=== PATIENT | male | born 1935 | race Caucasian/White ===

== ENCOUNTER 2020-11-10 13:40 | Inpatient (IN) | payer MEDICARE, SELFPAY ==
[2020-11-10 13:56] VITALS: BP 126/66; PULSE 91; RESP 16; RESP 18; TEMP 36.5; O2SAT 92; BMI 31.4
[2020-11-10] MEDS: Midodrine HCl 5 MG Tablet 10 MG PO (17:46)
[2020-11-10] MEDS: Amox/Clavulanate 875 MG Tablet PO (17:47)
--- NOTE | 2020-11-10 20:40 | HP.PCM_ITS ---
HPI - General General Date of Admission: 11/10/20 HPI Narrative 10/31/2020 SAUL STEVEN, is a 85 Male with below past medical history admitted to [facility] with shortness of breath/wheezing, fluid overload. Shortness of breath, lower extremity edema, left arm edema, 5 pound weight gain over last 7 days. Chest X-ray showed possible infection versus superimposed pulmonary fibrosis. CT abdomen/pelvis showed cirrhosis, small ascites. Left upper extremity doppler ultrasound negative for deep vein thrombosis. Patient was treated for fluid overload, congestive heart failure. Patient was previously on lasix which was stopped due to orthostatic hypotension. Patient diuresed, down 15 pounds since admission. Midodrine was started for orthostatic hypotension, but patient continues to have orthostatic hypotension. Cardiology consulted, recommended no Florinef, but instead changing Furosemide to 20MG every 48 hours. Dry weight is 205 pounds. 11/10/2020 Admit to TCU with debility, here for rehabilitation, strengthening, prior to discharge home with . [facility] Medical History (Updated 11/10/20 @ 20:[address] Agustin Rivera MD) Hydrocele Macular hole of left eye Allergy/AdvReac Type Severity Reaction Status Date / Time No Known Allergies Allergy Verified 11/10/20 14:03 Family History (Updated 11/10/20 @ 20:[address] Agustin Rivera MD) Mother CVA (cerebral vascular accident) Father Prostate cancer Brother Diabetes Aunt Diabetes Brother CAD (coronary artery disease) CABG Surgical History (Updated 11/10/20 @ 20:[address] Agustin Rivera MD) History of carpal tunnel release History of orchiectomy History of tonsillectomy Social History (Updated 11/10/20 @ 20:[address] Agustin Rivera MD) household members: spouse Smoking Status: Never smoker alcohol intake: never substance use type: does not use ROS Constitutional Constitutional: Denies chills, fever(s) or weight gain ENT HEENT: Denies headache(s), nasal congestion or nasal discharge Cardiovascular Cardiovascular: Denies chest pain or palpitations Respiratory/Chest Respiratory/Chest: Denies cough, excessive phlegm production or shortness of breath with exertion Gastrointestinal Gastrointestinal: Denies abdominal pain, nausea or vomiting Genitourinary Genitourinary: Denies dysuria Musculoskeletal Musculoskeletal: Denies joint pain or joint swelling Integumentary Integumentary: Denies rash or wounds Neurologic Neurologic: Denies focal weakness, numbness or tingling Psychiatric Psychiatric: Reports auditory hallucinations; Denies anxiety, depression, homicidal ideation or suicidal ideation Vital Signs Vital Signs Vital Signs: 11/10/20 13:56 Temperature 97.7 F L Temperature Source Temporal Pulse Rate 91 Pulse Rhythm Regular Pulse Strength Normal (2+) Respiratory Rate 18 Respiratory Effort Normal Non-Labored Respiratory Depth Normal Respiratory Pattern Normal Blood Pressure 126/66 H Blood Pressure Mean 86 Blood Pressure Source Monitor Blood Pressure Position Sitting Blood Pressure Location Left Arm Pulse Ox 92 Oxygen Delivery Method Nasal Cannula Oxygen Flow Rate (L/min) 3 Weight Weight: 96.706 kg Body Mass Index (BMI) 31.4 Physical Exam Const alert and oriented x3 General Appearance: cooperative HEENT normocephalic Eyes PERRL and EOMs intact bilaterally Neck supple, no JVD and no carotid bruits Resp normal respiratory effort, normal air movement and clear to auscultation bilaterally Cardio regular rate and regular rhythm GI normal to inspection, nondistended, normoactive bowel sounds, non-tender and non-distended Extremity normal capillary refill General Extremity: Negative for edema Skin no rashes or lesions noted General Skin Exam: no breakdown Psych affect normal Appearance: appropriate Assessment & Plan Assessment/Plan (1) Acute on chronic diastolic congestive heart failure: (2) Debility: (3) Benign prostate hyperplasia: (4) Carpal tunnel syndrome: (5) Orthostatic hypotension: (6) Diabetes mellitus: (7) Cirrhosis of liver: PLAN: 85 year old male with below past medical history hospitalized for shortness of breath secondary to acute on chronic diastolic congestive heart failure, complicated by orthostatic hypotension, admitted to TCU with debility, here for rehabilitation, strengthening, prior to discharge home with . * Debility - PT/OT. * Pain - Tylenol 1000MG Q6H prn pain (1-10). * Bowel - Senna/colace 1 tablet twice daily, Dulcolax 10MG daily PRN. * Adult immunization - Administer prevnar 13, pneumovax 23, fluzone, COVID19 vaccine as appropriate. * DVT prophylaxis - Lovenox 30MG sc daily. * ID - Augmentin 875MG twice daily x 4 doses. * CV prophylaxis - Aspirin 81mg daily. * Chronic diastolic congestive heart failure - Aldactone 25MG daily, Lasix 20MG Q48H. * Allergic rhinitis - Atrovent nasal spray 2 sprays three times daily. * Diabetes Mellitus II - Metformin 500MG daily. * Orthostatic hypotension - Midodrine 10mg TID. * Nutrition - MVI daily. * Hyperlipidemia - Pravastatin 10mg Q48H.
[2020-11-10] MEDS: Ipratropium Bromide 0.06% NASAL SPRAY 2 SPRAY NASAL (20:50)
[2020-11-11 06:00] VITALS: BP 108/57; PULSE 82; RESP 20; TEMP 36.8; O2SAT 94
[2020-11-11] MEDS: Furosemide 20 MG Tablet PO (06:02)
[2020-11-11] MEDS: Midodrine HCl 5 MG Tablet 10 MG PO ×3 (06:02→17:27)
[2020-11-11] MEDS: Spironolactone 25 MG Tablet PO (06:02)
[2020-11-11] MEDS: Ipratropium Bromide 0.06% NASAL SPRAY 2 SPRAY NASAL ×3 (06:02→20:55)
[2020-11-11] MEDS: Senna/Docusate Sodium 1 Tablet PO ×2 (06:14→17:27)
[2020-11-11 06:26] LABS: Bedside Glucose 104 mg/dL (70-110)
[2020-11-11 07:05] LABS: Absolute Lymphocyte Count 2.36 X10^3/uL (0.83-4.51); Absolute Neutrophil Count 3.6 X10^3/uL (2.0-7.7); Basophil# 0.06 X10^3/uL; Basophil% 0.8 % (0-1); Eosinophil# 0.53 X10^3/uL; Hematocrit 32.1 % (40-54); Hemoglobin 10.7 g/dL (13.0-16.5); Lymphocyte # 2.36 X10^3/ul (0.83-4.51); Lymphocyte % 31.3 % (19-41); Mean Corp Hgb Conc 33.3 g/dL (32-36); Mean Corpuscular Hgb 31.8 pg (27.0-32.0); Mean Corpuscular Volume 95.3 fL (80-94); Mean Platelet Vol. 9.6 fl (6.2-12.0); Monocyte# 0.98 X10^3/uL; NRBC Flagged by Analyzer 0 % (0-5); Neutrophil # 3.57 X10^3/uL (2.7-7.7); Neutrophil % 47.2 % (47-70); Platelet Count 194 K/mm3 (150-450); RBC Distribution Width CV 14.3 % (11.6-14.6); RBC Distribution Width SD 49.8 fl (35.1-43.9); Red Blood Count 3.37 M/mm3 (4.6-6.2); White Blood Count 7.6 K/mm3 (4.4-11.0)
[2020-11-11 07:29] LABS: Anion Gap 3 (5-15); BUN 13 mg/dL (7-18); BUN/Creat Ratio 16.6 RATIO (10-20); Chloride 99 mmol/L (98-107); Creatinine, Serum 0.78 mg/dL (0.70-1.30); EST Glomerular Filtration Rate 100 mL/min (>60); Est Glom Filt Rate - Afr Amer 120 mL/min (>60); Estimated Creatinine Clearance 53.03 ml/min; Glucose 98 mg/dL (74-106); Sodium Level 134 mmol/L (136-145)
[2020-11-11] MEDS: Enoxaparin 30 MG/0.3 ML Syringe SC (07:36)
[2020-11-11 08:50] VITALS: O2SAT 94
[2020-11-11] MEDS: Multivitamins,Therapeutic Tablet 1 TABLET PO (09:04)
[2020-11-11] MEDS: Amox/Clavulanate 875 MG Tablet PO ×2 (09:04→17:27)
[2020-11-11] MEDS: Aspirin E.C. 81 MG Tablet PO (09:04)
[2020-11-11] MEDS: metFORMIN HCl 500 MG Tablet PO (09:04)
--- NOTE | 2020-11-11 12:02 | CASEMGMT ---
Social Work SW met with pt for initial assessment. SW spoke with pt regarding code status and assisted pt in completing MOLST form. Pt wishes to be DNRCCA with no intubation and trial artificial nutrition if needed. MOLST communication to doctor and placed in chart. SW explained [employer] Medicare insurance benefit with NRD of 11/14 and continued stay is not guaranteed. Pt plans to return home with his and support from his children at time of discharge. SW will continue to follow. JORDI Michelle
[2020-11-11] MEDS: Tuberculin,Purif.prot.deriv. 50 TU/ML Vial 0.1 ML ID (12:31)
[2020-11-11 12:33] VITALS: BP 111/60; PULSE 76
--- NOTE | 2020-11-11 15:24 | CHAPLAIN ---
Type of Pastoral Visit _x__ Initial Visit ___ Follow-up Visit ___ On-call Visit ___ General Patient Visit ___ Spiritual Assessment ___ Family Conference ___ Bereavement ___ Rapid Response ___ Code Blue ___ Other (describe below) Pastoral Care Referral From _x__ Patient ___ Family ___ Nurse ___ Physician ___ Snack Stewardess ___ Plaster Caster ___ Other (describe below) Sacrament/Intervention _x__ Active listening ___ Anointing ___ Synagogue ___ Bereavement ___ Communion ___ Cristina exploration ___ _x__ Life review _x__ Prayer ___ Reconciliation ___ Sacrament of Sick _x__ Supportive presence ___ Wedding ___ Other (describe below) Pastoral Comments patient and spouse in the room; spouse is retired RN from this hospital from many years ago and talks of her service years; pt is doing better and hopes that his return of strength will come; pt is connected with buddhism and has support;
[2020-11-11 16:00] VITALS: BP 121/58; PULSE 74; RESP 17; TEMP 37.1; O2SAT 96
[2020-11-11 17:29] VITALS: BP 112/6
[2020-11-11] MEDS: Pravastatin 20 MG Tablet 10 MG PO (20:57)
[2020-11-11 23:36] VITALS: PULSE 74; RESP 12
[2020-11-12 05:56] VITALS: BP 115/50; PULSE 72; RESP 20; TEMP 36.2; O2SAT 94
[2020-11-12] MEDS: Ipratropium Bromide 0.06% NASAL SPRAY 2 SPRAY NASAL ×3 (05:57→22:29)
[2020-11-12] MEDS: Senna/Docusate Sodium 1 Tablet PO (05:59)
[2020-11-12] MEDS: Spironolactone 25 MG Tablet PO (05:59)
[2020-11-12] MEDS: Midodrine HCl 5 MG Tablet 10 MG PO ×3 (05:59→16:53)
[2020-11-12] MEDS: Enoxaparin 30 MG/0.3 ML Syringe SC (05:59)
[2020-11-12] MEDS: Amox/Clavulanate 875 MG Tablet PO (08:11)
[2020-11-12] MEDS: Multivitamins,Therapeutic Tablet 1 TABLET PO (08:11)
[2020-11-12] MEDS: metFORMIN HCl 500 MG Tablet PO (08:11)
[2020-11-12] MEDS: Aspirin E.C. 81 MG Tablet PO (08:11)
[2020-11-12 09:35] LABS: Anion Gap 5 (5-15); BUN 18 mg/dL (7-18); Calcium,Total 8.3 mg/dL (8.5-10.1); Chloride 100 mmol/L (98-107); EST Glomerular Filtration Rate 75 mL/min (>60); Est Glom Filt Rate - Afr Amer 91 mL/min (>60); Estimated Creatinine Clearance 53.03 ml/min; Glucose 193 mg/dL (74-106); Potassium 4.1 mmol/L (3.5-5.1); Sodium Level 134 mmol/L (136-145)
[2020-11-12 09:50] VITALS: O2SAT 96
[2020-11-12 11:36] LABS: Bedside Glucose 245 mg/dL (70-110)
[2020-11-12 14:33] VITALS: BP 126/55; PULSE 77; RESP 17; TEMP 36.5; O2SAT 94
[2020-11-12 16:21] LABS: Bedside Glucose 83 mg/dL (70-110)
[2020-11-13 04:47] VITALS: BP 98/41; PULSE 77; RESP 16; TEMP 36.8; O2SAT 95
[2020-11-13] MEDS: Ipratropium Bromide 0.06% NASAL SPRAY 2 SPRAY NASAL ×3 (04:51→22:55)
[2020-11-13] MEDS: Enoxaparin 30 MG/0.3 ML Syringe SC (04:51)
[2020-11-13] MEDS: Midodrine HCl 5 MG Tablet 10 MG PO ×3 (04:52→17:22)
--- NOTE | 2020-11-13 04:58 | NURSING ---
Addendum entered by Simi Baez 11/13/20 08:03: recheck 113/57 hr 75, medication administered. Original Note: Lasix and Aldactone held this am due to low BP.
[2020-11-13 06:31] LABS: Bedside Glucose 95 mg/dL (70-110)
[2020-11-13 06:51] LABS: Anion Gap 3 (5-15); BUN 21 mg/dL (7-18); BUN/Creat Ratio 30.4 RATIO (10-20); Calcium,Total 8.3 mg/dL (8.5-10.1); Chloride 104 mmol/L (98-107); Creatinine, Serum 0.69 mg/dL (0.70-1.30); EST Glomerular Filtration Rate 115 mL/min (>60); Est Glom Filt Rate - Afr Amer 140 mL/min (>60); Estimated Creatinine Clearance 53.03 ml/min; Glucose 96 mg/dL (74-106); Potassium 4.1 mmol/L (3.5-5.1); Sodium Level 136 mmol/L (136-145)
[2020-11-13] MEDS: Aspirin E.C. 81 MG Tablet PO (08:01)
[2020-11-13] MEDS: Multivitamins,Therapeutic Tablet 1 TABLET PO (08:01)
[2020-11-13 08:02] VITALS: BP 113/57; PULSE 75
[2020-11-13] MEDS: metFORMIN HCl 500 MG Tablet PO (08:02)
[2020-11-13] MEDS: Spironolactone 25 MG Tablet PO (08:02)
[2020-11-13] MEDS: Furosemide 20 MG Tablet PO (08:02)
[2020-11-13 15:35] VITALS: BP 119/49; PULSE 74; RESP 20; TEMP 36.3; O2SAT 93
[2020-11-13] MEDS: Senna/Docusate Sodium 1 Tablet PO (17:22)
[2020-11-13] MEDS: Pravastatin 20 MG Tablet 10 MG PO (22:55)
[2020-11-13 23:01] VITALS: PULSE 86; RESP 16; O2SAT 95
[2020-11-14 05:04] VITALS: BP 100/49; PULSE 82; RESP 20; TEMP 36.9; O2SAT 96
[2020-11-14] MEDS: Midodrine HCl 5 MG Tablet 10 MG PO ×3 (05:06→18:12)
[2020-11-14] MEDS: Senna/Docusate Sodium 1 Tablet PO ×2 (05:07→18:12)
[2020-11-14] MEDS: Enoxaparin 30 MG/0.3 ML Syringe SC (05:07)
[2020-11-14] MEDS: Spironolactone 25 MG Tablet PO (05:07)
[2020-11-14] MEDS: Ipratropium Bromide 0.06% NASAL SPRAY 2 SPRAY NASAL ×3 (05:08→21:26)
[2020-11-14 06:20] LABS: Bedside Glucose 111 mg/dL (70-110)
[2020-11-14 07:53] VITALS: O2SAT 97
[2020-11-14] MEDS: metFORMIN HCl 500 MG Tablet PO (09:17)
[2020-11-14] MEDS: Multivitamins,Therapeutic Tablet 1 TABLET PO (09:18)
[2020-11-14] MEDS: Aspirin E.C. 81 MG Tablet PO (09:18)
[2020-11-14 11:34] VITALS: BP 113/59; PULSE 76
--- NOTE | 2020-11-14 13:44 | PHA.CONS_ITS ---
Progress Note - Pharmacy Subjective: TCU ADMISSION Objective: Allergies No Known Allergies Allergy (Verified 11/10/20 14:03) Current Medications Generic Name Dose Route Start Last Admin Trade Name Patricia PRN Reason Stop Dose Admin Acetaminophen 1,000 mg 11/10/20 21:01 Acetaminophen 500 Mg Tablet PO Q6H PRN PRN Pain Score 1-10 Aspirin 81 mg 11/11/20 08:00 11/14/20 09:18 Aspirin E.C. 81 Mg Tablet PO 81 mg BREAKFAST ARNAUD Administration Bisacodyl 10 mg 11/10/20 21:01 Bisacodyl 5 Mg Tablet PO DAILY PRN Constipation Enoxaparin Sodium 30 mg 11/11/20 06:00 11/14/20 05:07 Enoxaparin 30 Mg/0.3 Ml Syringe SC 30 mg DAILY@0600 ARNAUD Administration Furosemide 20 mg 11/11/20 06:00 11/13/20 08:02 Furosemide 20 Mg Tablet PO 20 mg Q48H ARNAUD Administration Ipratropium [place] 2 spray 11/10/20 22:00 11/14/20 05:08 Ipratropium [place] 0.06% Nasal [place] NASAL 2 spray TID ARNAUD Administration Metformin HCl 500 mg 11/11/20 08:00 11/14/20 09:17 Metformin Hcl 500 Mg Tablet PO 500 mg DAILYCM ARNAUD Administration Midodrine 10 mg 11/10/20 17:00 11/14/20 11:29 Midodrine Hcl 5 Mg Tablet PO 10 mg 0600,1200,1700 ARNAUD Administration Multivitamins 1 tablet 11/11/20 08:00 11/14/20 09:18 Multivitamins,Therapeutic Tablet PO 1 tablet BREAKFAST ARNAUD Administration Pravastatin Sodium 10 mg 11/11/20 22:00 11/13/20 22:55 Pravastatin 20 Mg Tablet PO 10 mg Q48H ARNAUD Administration Senna/Docusate Sodium 1 tablet 11/11/20 06:00 11/14/20 05:07 Senna/Docusate Sodium 1 Tablet PO 1 tablet BID ARNAUD Administration Spironolactone 25 mg 11/11/20 06:00 11/14/20 05:07 Spironolactone 25 Mg Tablet PO 25 mg DAILY ARNAUD Administration Tuberculin PPD 0.1 ml 11/18/20 10:00 Tuberculin,Purif.Prot.Deriv. 50 Tu/Ml Vial ID 11/18/20 10:01 X1 ONE Problem List (Last Updated 11/10/20 @ 20:[address] Agustin Rivera MD) Diabetes mellitus (Acute) Cirrhosis of liver (Acute) Benign prostate hyperplasia (Acute) Carpal tunnel syndrome (Acute) Orthostatic hypotension (Acute) Acute on chronic diastolic congestive heart failure (Chronic) Debility (Acute) Vital Signs Temp Pulse Resp BP Pulse Ox 98.5 F 76 20 H 113/59 L 97 11/14/20 05:04 11/14/20 11:34 11/14/20 05:04 11/14/20 11:34 11/14/20 07:53 Oxygen Flow Rate (L/min) 4 Oxygen Delivery Method Nasal Cannula Weight: 97.267 kg Body Mass Index (BMI) 31.4 Sodium 136 mmol/L (136-145) 11/13/20 05:20 Potassium 4.1 mmol/L (3.5-5.1) 11/13/20 05:20 Chloride 104 mmol/L (98-107) 11/13/20 05:20 Carbon Dioxide 29.0 mmol/L (21.0-32.0) 11/13/20 05:20 Anion Gap 3 (5-15) L 11/13/20 05:20 BUN 21 mg/dL (7-18) H 11/13/20 05:20 Creatinine 0.69 mg/dL (0.70-1.30) L 11/13/20 05:20 Est GFR (MDRD) Af Amer 140 mL/min (>60) 11/13/20 05:20 Est GFR (MDRD) Non-Af 115 mL/min (>60) 11/13/20 05:20 BUN/Creatinine Ratio 30.4 RATIO (10-20) H 11/13/20 05:20 Glucose 96 mg/dL (74-106) 11/13/20 05:20 Assessment/Plan: 1. Pain: Tylenol 1000mg PO Q6h PRN Pain 1-10. Please continue to monitor for increased/decreased S/S pain, PRN medication usage. 2. CHF/ HLD/ Orthostatic hypotension: Aspirin 81mg PO Daily, Lasix 20mg PO Q48h, Midodrine 5mg TID, Pravastatin 10mg PO Q48h, Aldactone 25mg PO Daily. Please continue to monitor BP, pulse, I/O, electrolytes, S/S bleeding/bruising, Lipid panel annually or sooner if clinically indicated. 3. Diabetes Type II: Metformin 500mg PO Daily. Please continue to monitor for S/S hypoglycemia, BG levels, A1C every three months as clinically indicated. 4. Allergic Rhinitis: Atrovent Nasal [place] 2 spray TID. Please continue to monitor for improvement in symptoms, medication effectiveness. *5. DVT Prophylaxis: Lovenox 30mg SC Daily. Please consider increasing dose to 40mg SC Daily since CrCl >30mL/min, thank you. 6. General Wellness: MVI 1 tab PO Daily. Please continue to monitor. Psychotropic Medications: None Unnecessary Medications: None Bowel Regimen: Senna/Docusate 1 tab PO BID, Dulcolax 10mg PO Daily PRN. Please continue to monitor for increased/decreased constipation and/or diarrhea. Date of Note:: 11/14/20
[2020-11-14 15:49] VITALS: PULSE 85; O2SAT 95
[2020-11-14 16:58] VITALS: BP 120/48; PULSE 73; RESP 18; TEMP 36.4; O2SAT 96
[2020-11-15 05:51] VITALS: BP 93/47; PULSE 81; RESP 18; TEMP 36.3; O2SAT 96
[2020-11-15] MEDS: Furosemide 20 MG Tablet PO (05:51)
[2020-11-15] MEDS: Ipratropium Bromide 0.06% NASAL SPRAY 2 SPRAY NASAL ×3 (05:51→22:13)
[2020-11-15] MEDS: Spironolactone 25 MG Tablet PO (05:51)
[2020-11-15] MEDS: Enoxaparin 30 MG/0.3 ML Syringe SC (05:51)
[2020-11-15] MEDS: Senna/Docusate Sodium 1 Tablet PO ×2 (05:51→16:45)
[2020-11-15] MEDS: Midodrine HCl 5 MG Tablet 10 MG PO ×3 (05:51→16:44)
[2020-11-15 05:53] LABS: Anion Gap 2 (5-15); BUN 18 mg/dL (7-18); BUN/Creat Ratio 26.7 RATIO (10-20); Calcium,Total 7.7 mg/dL (8.5-10.1); Chloride 103 mmol/L (98-107); Creatinine, Serum 0.67 mg/dL (0.70-1.30); EST Glomerular Filtration Rate 119 mL/min (>60); Est Glom Filt Rate - Afr Amer 144 mL/min (>60); Estimated Creatinine Clearance 53.03 ml/min; Glucose 89 mg/dL (74-106); Potassium 4.1 mmol/L (3.5-5.1); Sodium Level 136 mmol/L (136-145)
[2020-11-15 06:31] LABS: Bedside Glucose 95 mg/dL (70-110)
[2020-11-15 07:26] VITALS: O2SAT 96
[2020-11-15] MEDS: Aspirin E.C. 81 MG Tablet PO (09:34)
[2020-11-15] MEDS: metFORMIN HCl 500 MG Tablet PO (09:34)
[2020-11-15] MEDS: Multivitamins,Therapeutic Tablet 1 TABLET PO (09:35)
--- NOTE | 2020-11-15 09:36 | NURSING ---
Pt c/o of increased swelling to left arm assessed and pt has +2 Pitting edema to arm/hand. Dr. Rivera updated ordered a Doppler of left arm and Palliative consult.
[2020-11-15 11:53] VITALS: BP 110/58; PULSE 84
[2020-11-15 13:46] VITALS: BP 121/53; PULSE 75; RESP 16; TEMP 36.6; O2SAT 98
[2020-11-15 22:10] VITALS: O2SAT 98
[2020-11-15] MEDS: Pravastatin 20 MG Tablet 10 MG PO (22:14)
[2020-11-16 04:33] VITALS: BP 98/45; PULSE 86; RESP 18; TEMP 36.8; O2SAT 96
[2020-11-16] MEDS: Ipratropium Bromide 0.06% NASAL SPRAY 2 SPRAY NASAL ×3 (04:41→21:12)
[2020-11-16] MEDS: Midodrine HCl 5 MG Tablet 10 MG PO ×3 (04:41→18:00)
[2020-11-16] MEDS: Enoxaparin 30 MG/0.3 ML Syringe SC (04:41)
[2020-11-16] MEDS: Spironolactone 25 MG Tablet PO (04:41)
[2020-11-16] MEDS: Senna/Docusate Sodium 1 Tablet PO ×2 (04:42→18:00)
[2020-11-16 06:40] LABS: Bedside Glucose 97 mg/dL (70-110)
[2020-11-16 07:51] VITALS: O2SAT 95
[2020-11-16] MEDS: metFORMIN HCl 500 MG Tablet PO (08:08)
[2020-11-16] MEDS: Multivitamins,Therapeutic Tablet 1 TABLET PO (08:08)
[2020-11-16] MEDS: Aspirin E.C. 81 MG Tablet PO (08:08)
[2020-11-16 10:51] VITALS: O2SAT 91
--- NOTE | 2020-11-16 10:51 | NURSING ---
Pt ambulated to doorway to scale to be weighed, pt slight dizzy, oxygen remained at 4 liters, sat dropped to 74%, pt sitting and it recovering to 94% on 4 liters. sitting in recliner chair, at side.
[2020-11-16 12:04] VITALS: BP 104/52; PULSE 84; RESP 18; TEMP 36.6; O2SAT 94
[2020-11-16 13:40] VITALS: BP 122/59; PULSE 71; RESP 18; TEMP 36.9; O2SAT 96
--- NOTE | 2020-11-16 15:34 | PCM.CONS.P ---
Assessment & Plan Assessment/Plan (1) Debility: (2) Orthostatic hypotension: (3) Cirrhosis of liver: QUALIFIERS: Ascites presence: unspecified Hepatic cirrhosis type: unspecified hepatic cirrhosis Qualified Code(s): K74.60 - Unspecified cirrhosis of liver (4) Benign prostate hyperplasia: QUALIFIERS: Lower urinary tract symptom presence: unspecified whether lower urinary tract symptoms present Qualified Code(s): N40.0 - Benign prostatic hyperplasia without lower urinary tract symptoms (5) Type II diabetes mellitus: QUALIFIERS: Diabetes mellitus complication status: without complication Diabetes mellitus fci insulin use: without fci use Qualified Code(s): E11.9 - Type 2 diabetes mellitus without complications (6) Carpal tunnel syndrome: QUALIFIERS: Laterality: unspecified laterality Qualified Code(s): G56.00 - Carpal tunnel syndrome, unspecified upper limb (7) Acute on chronic diastolic congestive heart failure: (8) Anemia: PLAN: 85-year-old male with weakness and debility, recent hospital stay at [facility] for CHF exacerbation, now admitted to TCU for further rehab prior to returning home with his . Palliative care consultation for symptom management of shortness of breath and supportive care when discharged home. 1. Debility and weakness: Working with therapy, plan is to return home. Anemia could be contributory, as well as chf and hypotension. We will continue to monitor his progress. 2. SOB/acute on chronic diastolic CHF: Appears to be compensated. Has been having some lower blood pressures, furosemide is now at 20 mg every 48 hours. Cardiology on board. He still appears short of breath, mainly with exertion. He just ambulated back from the bathroom. He actually says he wears 3 L at home at baseline. 3. History of T2DM/cirrhosis of liver/BPH/carpal tunnel syndrome/orthostatic hypotension/anemia: Complicates overall care, management, recovery, and prognosis. Defer management to specialists and PCP. We will assist with coordination of care if patient agreeable to services. Thank you for the opportunity to participate in this patient's care, please do not hesitate to contact [facility] with any further questions or concerns. Palliative direct line is [phone]. Patient has declined services at this time, states his is an RN and he has a daughter who is an PRUNER, along with 2 other daughters who assist routinely. We did some diet education with congestive heart failure. No other questions or concerns. Advised patient to contact us if he has any further questions or concerns, or if he would like more information on palliative services. We would be happy to send a liaison out to talk with him and his family. Greater than 50% of F2F visit dedicated to education and counseling of palliative care services, medications, comorbid conditions and potential assistance with management, and plan of care moving forward. Start time: 161 End time: 1733 HPI Consult Data Date of Consult: 11/16/20 HPI Narrative HPI Narrative: SAUL STEVNE, is a 85 M who presents to TCU at [facility] after being admitted to the [facility] with shortness of breath and fluid volume overload. At the hospital, he was noted to have a 5 pound weight gain over 1 week, bilateral lower extremity edema, and left arm edema. Chest x-ray showed possible infection versus superimposed pulmonary fibrosis. CT abdomen/pelvis showed cirrhosis and small amount of ascites. He was diuresed for CHF and had a negative lower extremity Doppler ultrasound. Patient did have some hypotension with the diuresis. PMH includes cirrhosis, BPH, T2 DM, hydrocele, interstitial lung disease, chronic diastolic CHF, carpal tunnel. Palliative care consulted for symptom management of shortness of breath. Patient required midodrine due to ongoing orthostatic hypotension. Cardiology was consulted and recommended no Florinef but instead changing to furosemide 20 mg every 48 hours. Given his ipsilateral left upper extremity edema, Doppler ultrasound was done to rule out DVT which was negative. There is no evidence of superficial thrombophlebitis as well. Patient lives at home with his and has supportive children. He is a lifelong non-smoker. He is on a fluid restriction and daily weights. He wears 4 L of supplemental oxygen chronically at home. Patient has been desaturating with ambulation into the upper 70s on his typical 4 L. He recovers quickly. Patient is having some pain to his bilateral shoulders, rating 5 out of 10. [facility] Medical History Hydrocele Macular hole of left eye Allergy/AdvReac Type Severity Reaction Status Date / Time No Known Allergies Allergy Verified 11/10/20 14:03 Family History Mother CVA (cerebral vascular accident) Father Prostate cancer Brother Diabetes Aunt Diabetes Brother CAD (coronary artery disease) CABG Surgical History History of carpal tunnel release History of orchiectomy History of tonsillectomy Social History household members: spouse Smoking Status: Never smoker alcohol intake: never substance use type: does not use ROS ROS Narrative Review of systems otherwise negative from a constitutional, HEENT, respiratory, cardiovascular, GI, genitourinary, musculoskeletal, skin, neurologic, psychiatric and hematologic system unless stated above.
--- NOTE | 2020-11-16 16:15 | CASEMGMT ---
Social Work Plan of care meeting held with pt and in attendance. Pt is receiving PT/OT and participating well. Pt is here under [employer] Medicare benefit and is aware next update is 11/21 with expected disharge to be issued for 11/24. Pt with medical concerns and team passed concerns on to physician. Pt plans to return home with his and family support at time of discharge. Pt informed pt would benefit from getting a hip kit for assistive devices. Will continue with treatment plan in TCU at this time. JORDI Michelle
[2020-11-17 04:41] VITALS: BP 102/49; PULSE 88; RESP 18; TEMP 37; O2SAT 97
[2020-11-17] MEDS: Ipratropium Bromide 0.06% NASAL SPRAY 2 SPRAY NASAL ×3 (04:51→21:04)
[2020-11-17] MEDS: Furosemide 20 MG Tablet PO (04:51)
[2020-11-17] MEDS: Spironolactone 25 MG Tablet PO (04:51)
[2020-11-17] MEDS: Midodrine HCl 5 MG Tablet 10 MG PO ×3 (04:52→16:12)
[2020-11-17] MEDS: Enoxaparin 30 MG/0.3 ML Syringe SC (04:52)
[2020-11-17] MEDS: Senna/Docusate Sodium 1 Tablet PO ×2 (04:52→16:11)
[2020-11-17 06:25] LABS: Bedside Glucose 132 mg/dL (70-110)
[2020-11-17 07:20] VITALS: O2SAT 96
[2020-11-17] MEDS: Multivitamins,Therapeutic Tablet 1 TABLET PO (07:46)
[2020-11-17] MEDS: metFORMIN HCl 500 MG Tablet PO (07:46)
[2020-11-17] MEDS: Aspirin E.C. 81 MG Tablet PO (07:47)
--- NOTE | 2020-11-17 07:56 | RAD_ITS ---
STUDY: X-RAY CHEST REASON FOR EXAM: Male, 85 years old. Cough, pneumonia TECHNIQUE: Single AP portable view of the chest. COMPARISON: None. FINDINGS: Increased interstitial markings in both lungs with areas of confluence more prominent in the left hemithorax. Patchy bilateral pneumonias should be ruled out. There is no demonstrated pleural abnormality. Normal size heart. Normal mediastinum and lei. Normal visualized pulmonary arteries. There is atherosclerotic calcification of the aortic arch with tortuosity. There are diffuse degenerative changes of the visualized thoracic spine. There is degenerative osteoarthritis of the bilateral shoulders. There is no demonstrated abnormality of the visualized soft tissue structures of the upper abdomen. RAD/Chest PA and Lateral IMPRESSION: Increased interstitial markings with areas of confluence more prominent in the left hemithorax. Findings are suggestive of bibasilar infiltrates. Follow-up is recommended. Electronically Signed: Robin Prince MD at 13:03 EDT , Service support ,
[2020-11-17 13:07] VITALS: BP 119/52; PULSE 87; RESP 18; TEMP 36.2; O2SAT 93
[2020-11-17] MEDS: Azithromycin 250 MG Tablet 500 MG PO (16:11)
[2020-11-17] MEDS: Cefdinir 300 MG Capsule PO (17:23)
[2020-11-17] MEDS: Pravastatin 20 MG Tablet 10 MG PO (21:04)
[2020-11-18 05:27] LABS: Absolute Lymphocyte Count 2.91 X10^3/uL (0.83-4.51); Absolute Neutrophil Count 4.1 X10^3/uL (2.0-7.7); Basophil# 0.09 X10^3/uL; Eosinophils% 5.7 % (0-5); Hematocrit 29.1 % (40-54); Hemoglobin 9.6 g/dL (13.0-16.5); Lymphocyte # 2.91 X10^3/ul (0.83-4.51); Lymphocyte % 33.3 % (19-41); Mean Corpuscular Hgb 31.4 pg (27.0-32.0); Mean Corpuscular Volume 95.1 fL (80-94); Mean Platelet Vol. 9.5 fl (6.2-12.0); Monocyte# 1.08 X10^3/uL; Monocyte% 12.4 % (0-10); NRBC Flagged by Analyzer 0 % (0-5); Neutrophil # 4.12 X10^3/uL (2.7-7.7); Neutrophil % 47.1 % (47-70); Platelet Count 187 K/mm3 (150-450); RBC Distribution Width CV 14.6 % (11.6-14.6); RBC Distribution Width SD 50.7 fl (35.1-43.9); Red Blood Count 3.06 M/mm3 (4.6-6.2); White Blood Count 8.7 K/mm3 (4.4-11.0)
[2020-11-18 05:44] LABS: Anion Gap 4 (5-15); BUN 19 mg/dL (7-18); BUN/Creat Ratio 27.4 RATIO (10-20); Calcium,Total 7.9 mg/dL (8.5-10.1); Chloride 104 mmol/L (98-107); Creatinine, Serum 0.69 mg/dL (0.70-1.30); EST Glomerular Filtration Rate 115 mL/min (>60); Est Glom Filt Rate - Afr Amer 139 mL/min (>60); Estimated Creatinine Clearance 53.03 ml/min; Glucose 114 mg/dL (74-106); Potassium 4.1 mmol/L (3.5-5.1); Sodium Level 137 mmol/L (136-145)
[2020-11-18 06:03] VITALS: BP 97/45; PULSE 90; RESP 16; TEMP 37.1; O2SAT 97
[2020-11-18] MEDS: Midodrine HCl 5 MG Tablet 10 MG PO ×3 (06:08→17:03)
[2020-11-18] MEDS: Furosemide 20 MG Tablet PO (06:08)
[2020-11-18] MEDS: Ipratropium Bromide 0.06% NASAL SPRAY 2 SPRAY NASAL ×3 (06:09→23:13)
[2020-11-18] MEDS: Enoxaparin 30 MG/0.3 ML Syringe SC (06:09)
[2020-11-18] MEDS: Spironolactone 25 MG Tablet PO (06:09)
[2020-11-18] MEDS: Cefdinir 300 MG Capsule PO ×2 (06:09→17:03)
[2020-11-18] MEDS: Senna/Docusate Sodium 1 Tablet PO (06:11)
[2020-11-18 06:25] LABS: Bedside Glucose 123 mg/dL (70-110)
[2020-11-18 07:11] VITALS: O2SAT 90
[2020-11-18] MEDS: Multivitamins,Therapeutic Tablet 1 TABLET PO (08:33)
[2020-11-18] MEDS: Aspirin E.C. 81 MG Tablet PO (08:33)
[2020-11-18] MEDS: metFORMIN HCl 500 MG Tablet PO (08:33)
[2020-11-18] MEDS: Azithromycin 250 MG Tablet PO (08:33)
[2020-11-18] MEDS: Tuberculin,Purif.prot.deriv. 50 TU/ML Vial 0.1 ML ID (11:09)
[2020-11-18 14:27] VITALS: BP 117/56; PULSE 71; RESP 20; TEMP 36.4; O2SAT 98
[2020-11-19 05:22] VITALS: BP 139/52; PULSE 84; RESP 18; TEMP 36.6; O2SAT 94
[2020-11-19] MEDS: Cefdinir 300 MG Capsule PO ×2 (05:24→18:05)
[2020-11-19] MEDS: Furosemide 20 MG Tablet PO (05:24)
[2020-11-19] MEDS: Midodrine HCl 5 MG Tablet 10 MG PO ×3 (05:24→18:05)
[2020-11-19] MEDS: Spironolactone 25 MG Tablet PO (05:24)
[2020-11-19] MEDS: Senna/Docusate Sodium 1 Tablet PO (05:25)
[2020-11-19] MEDS: Ipratropium Bromide 0.06% NASAL SPRAY 2 SPRAY NASAL ×3 (05:26→21:47)
[2020-11-19 06:50] LABS: Bedside Glucose 103 mg/dL (70-110)
[2020-11-19] MEDS: metFORMIN HCl 500 MG Tablet PO (09:16)
[2020-11-19] MEDS: Aspirin E.C. 81 MG Tablet PO (09:16)
[2020-11-19] MEDS: Azithromycin 250 MG Tablet PO (09:17)
[2020-11-19] MEDS: Multivitamins,Therapeutic Tablet 1 TABLET PO (09:17)
[2020-11-19 11:12] VITALS: O2SAT 92
[2020-11-19 15:30] VITALS: BP 109/62; PULSE 81; RESP 16; TEMP 36.1; O2SAT 93
[2020-11-19] MEDS: Pravastatin 20 MG Tablet 10 MG PO (21:48)
[2020-11-19 22:20] VITALS: O2SAT 96
[2020-11-20 05:27] VITALS: BP 105/45; PULSE 96; RESP 16; TEMP 36.6; O2SAT 95
[2020-11-20] MEDS: Spironolactone 25 MG Tablet PO (05:29)
[2020-11-20] MEDS: Ipratropium Bromide 0.06% NASAL SPRAY 2 SPRAY NASAL ×3 (05:29→21:09)
[2020-11-20] MEDS: Furosemide 20 MG Tablet PO ×2 (05:30→21:10)
[2020-11-20] MEDS: Cefdinir 300 MG Capsule PO ×2 (05:30→17:04)
[2020-11-20] MEDS: Midodrine HCl 5 MG Tablet 10 MG PO ×3 (05:30→17:04)
[2020-11-20] MEDS: Senna/Docusate Sodium 1 Tablet PO ×2 (05:31→17:04)
--- NOTE | 2020-11-20 05:39 | NURSING ---
PRODUCTION MAINTENANCE TECHNICIAN reports pt would like spouse to assist w/ a shower today. Discussed w/ this nurse. PRODUCTION MAINTENANCE TECHNICIAN to inform pt spouse should not assist w/ shower to prevent breaking hip precautions and to ensure pt safety. Could try to coordinate request w/ therapy for Saturday. Left vm w/ social service technician to update and start dc planning/training w/ spouse.
--- NOTE | 2020-11-20 05:42 | NURSING ---
Left vm for social science manager to discuss dc date w/ pt tomorrow. Per pt, he thinks dc is scheduled for 11/21, and recent case management note reflects projected dc date for 11/24.
[2020-11-20 06:03] LABS: Hematocrit 29.3 % (40-54); Hemoglobin 9.6 g/dL (13.0-16.5)
[2020-11-20 06:41] LABS: Bedside Glucose 92 mg/dL (70-110)
[2020-11-20 07:56] VITALS: O2SAT 94
[2020-11-20] MEDS: Aspirin E.C. 81 MG Tablet PO (09:37)
[2020-11-20] MEDS: Multivitamins,Therapeutic Tablet 1 TABLET PO (09:37)
[2020-11-20] MEDS: metFORMIN HCl 500 MG Tablet PO (09:37)
[2020-11-20] MEDS: Azithromycin 250 MG Tablet PO (09:37)
[2020-11-20 14:31] VITALS: BP 113/47; PULSE 71; RESP 18; TEMP 36.7; O2SAT 94
[2020-11-20 15:07] VITALS: PULSE 80; RESP 18; O2SAT 94
--- NOTE | 2020-11-20 19:35 | NURSING ---
updated on new orders regarding increase in lasix dose d/t ^ edema
--- NOTE | 2020-11-21 00:34 | NURSING ---
MANUFACTURING ENGINEER ASSEMBLY reports pt. with weakness and shaking with toileting/standing. Pt. immediately assessed. Pt. observed standing in front of toilet with staff assist, weakness observed, mild shaking observed to BUE, responds to verbal stimuli, slow to answer questions. A&Ox3. Assisted to sitting position x2 staff assist with verbal cues. Bp 117/39, Sp02 initially observed at 77% in 4L, O2 on via NC at 4L, in sitting position SP02 increased to 91%. Pt. reported dizziness with standing. Denied attempt to move bowels during toileting. Standing BP 74/37, Sp02 observed dropping to 75% on 4L O2 via NC while standing. Assisted to bed x3 staff assist, Sp02 returns to 92%, pulse 82 in lying position, resting in bed. No acute distress observed at rest. Pt. able to answer questions appropriately. Pleasant and talkative. contacted via phone with update regarding above information. New order decrease Lasix to 20mg daily and encourage patient to rest in bed throughout the night.
[2020-11-21 06:01] LABS: Anion Gap 3 (5-15); BUN 16 mg/dL (7-18); BUN/Creat Ratio 22.2 RATIO (10-20); Calcium,Total 7.8 mg/dL (8.5-10.1); Chloride 101 mmol/L (98-107); Creatinine, Serum 0.72 mg/dL (0.70-1.30); EST Glomerular Filtration Rate 110 mL/min (>60); Est Glom Filt Rate - Afr Amer 133 mL/min (>60); Estimated Creatinine Clearance 53.03 ml/min; Glucose 93 mg/dL (74-106); Potassium 4.4 mmol/L (3.5-5.1); Sodium Level 135 mmol/L (136-145)
[2020-11-21 06:13] VITALS: BP 92/46; PULSE 82; RESP 18; TEMP 36.4; O2SAT 97
[2020-11-21] MEDS: Ipratropium Bromide 0.06% NASAL SPRAY 2 SPRAY NASAL ×3 (06:17→21:02)
[2020-11-21] MEDS: Cefdinir 300 MG Capsule PO ×2 (06:18→17:47)
[2020-11-21] MEDS: Furosemide 20 MG Tablet PO (06:18)
[2020-11-21] MEDS: Spironolactone 25 MG Tablet PO (06:18)
[2020-11-21] MEDS: Midodrine HCl 5 MG Tablet 10 MG PO ×3 (06:18→17:47)
[2020-11-21] MEDS: Senna/Docusate Sodium 1 Tablet PO ×2 (06:20→17:47)
[2020-11-21 06:46] LABS: Bedside Glucose 96 mg/dL (70-110)
[2020-11-21 06:47] VITALS: O2SAT 96
[2020-11-21] MEDS: Aspirin E.C. 81 MG Tablet PO (09:24)
[2020-11-21] MEDS: metFORMIN HCl 500 MG Tablet PO (09:24)
[2020-11-21] MEDS: Multivitamins,Therapeutic Tablet 1 TABLET PO (09:25)
[2020-11-21] MEDS: Azithromycin 250 MG Tablet PO (09:25)
[2020-11-21 11:43] VITALS: BP 100/60; PULSE 83; O2SAT 94
[2020-11-21 14:41] VITALS: BP 120/63; PULSE 76; RESP 18; TEMP 36.5; O2SAT 97
--- NOTE | 2020-11-21 15:52 | CASEMGMT ---
Social Work SW received message from nursing that pt is requesting to return home. SW met with pt and in room. Pt stating he feels like he could functionally return home but is concerned with taking on fluid and then BP dropping as pt states he had an episode last night. SW notified nursing that pt and presenting many questions about medical issue and would like to speak to physician regarding this issue. SW spoke with to pt and about Palliative medicine. Pt was seen by Palliative medicine on 11/16 and pt declined services at that time. With pt present, SW explained how Palliative could assist pt once home. Pt and would like to reconsider and start Palliative program. SW placed call to [facility] and updated with new referral. Pt and are agreeable to recommended home health services PT/OT/SN/RADIATION MONITOR and would like to use [facility] [employer]. FRANCIS will speak with pt and again tomorrow about discharge plans once they have had the opportunity to speak with nursing/physician regarding medical concerns. JORDI Michelle
[2020-11-21] MEDS: Pravastatin 20 MG Tablet 10 MG PO (21:01)
[2020-11-22 05:41] LABS: Bedside Glucose 98 mg/dL (70-110)
[2020-11-22 06:01] VITALS: BP 108/59; PULSE 88; RESP 16; TEMP 36.8; O2SAT 97
[2020-11-22] MEDS: Furosemide 20 MG Tablet PO (06:09)
[2020-11-22] MEDS: Spironolactone 25 MG Tablet PO (06:09)
[2020-11-22] MEDS: Cefdinir 300 MG Capsule PO ×2 (06:09→17:12)
[2020-11-22] MEDS: Ipratropium Bromide 0.06% NASAL SPRAY 2 SPRAY NASAL ×3 (06:09→20:38)
[2020-11-22] MEDS: Midodrine HCl 5 MG Tablet 10 MG PO ×3 (06:10→17:12)
[2020-11-22] MEDS: Senna/Docusate Sodium 1 Tablet PO ×2 (06:10→17:12)
[2020-11-22] MEDS: Multivitamins,Therapeutic Tablet 1 TABLET PO (09:51)
[2020-11-22] MEDS: Aspirin E.C. 81 MG Tablet PO (09:52)
[2020-11-22] MEDS: metFORMIN HCl 500 MG Tablet PO (09:52)
--- NOTE | 2020-11-22 11:23 | CASEMGMT ---
Social Work SW met with Dr. Rivera who is recommending home with hospice services for pt. SW met with pt, pt and pt daughter Marylou. Pt and dgt spoke with Dr. Rivera last evening and are aware of recommendations. SW offered support as pt and family discussed feelings surrounding this news. SW explained hospice program and discussed discharge plan with family. Pt and family agreeable to Hospice referral and would like to discharge home tomorrow with hospice services. Phone call to [facility] and referral made with clinical information being faxed. Meredith will reach out to pt dgt Marylou and set up an appointment for later this afternoon. Team updated on discharge plan. JORDI Michelle
[2020-11-22 11:59] VITALS: BP 107/59; PULSE 84
--- NOTE | 2020-11-22 12:17 | NURSING ---
Hospice liason here to talk with resident. Resident excited to go home.
--- NOTE | 2020-11-22 13:03 | CASEMGMT ---
Social Work SW spoke with Hospice Liason who met with pt and family. Papers have been signed and pt will discharge home tomorrow with family. Hospice will arrange for needed DME and will meet pt at home once discharged. JORDI Michelle
[2020-11-22 13:52] VITALS: BP 110/61; PULSE 85; RESP 16; TEMP 36.6; O2SAT 98
--- NOTE | 2020-11-22 19:56 | DS.PCM_ITS ---
Providers Date of Admission: 11/10/20 Primary Care Physician: Dr. Prem Cardozo MD Consultations 11/15/20 07:53 Consult: Hospice / Palliative Care Routine Consulting Provider: [facility] Reason for Consult: Symptom Management Cirrhosis EMERGENT Consult: No MD Notified: Yes Date Notified: 11/15/20 Time Notified: 13:00 Method of Notification: Verbal Reason For Visit: PNEUMONIA Diagnosis Discharge Diagnosis (1) Debility: Status: Acute Code(s): R53.81 - Other malaise (2) Orthostatic hypotension: Status: Acute Code(s): I95.1 - Orthostatic hypotension (3) Cirrhosis of liver: Status: Acute Code(s): K74.60 - Unspecified cirrhosis of liver Qualifiers: Hepatic cirrhosis type: unspecified hepatic cirrhosis Ascites presence: unspecified Qualified Code(s): K74.60 - Unspecified cirrhosis of liver (4) Benign prostate hyperplasia: Status: Acute Code(s): N40.0 - Benign prostatic hyperplasia without lower urinary tract symptoms Qualifiers: Lower urinary tract symptom presence: unspecified whether lower urinary tract symptoms present Qualified Code(s): N40.0 - Benign prostatic hyperplasia without lower urinary tract symptoms (5) Type II diabetes mellitus: Status: Inactive Code(s): E11.9 - Type 2 diabetes mellitus without complications Qualifiers: Diabetes mellitus petroleum terminal plant operator insulin use: without petroleum terminal plant operator use Diabetes mellitus complication status: without complication Qualified Code(s): E11.9 - Type 2 diabetes mellitus without complications (6) Carpal tunnel syndrome: Status: Acute Code(s): G56.00 - Carpal tunnel syndrome, unspecified upper limb Qualifiers: Laterality: unspecified laterality Qualified Code(s): G56.00 - Carpal tunnel syndrome, unspecified upper limb (7) Acute on chronic diastolic congestive heart failure: Status: Chronic Code(s): I50.33 - Acute on chronic diastolic (congestive) heart failure (8) Anemia: Status: Acute Code(s): D64.9 - Anemia, unspecified Medications at Discharge Home Medications acetaminophen 1,000 mg PO Q6H PRN PRN #0 tab 11/22/20 furosemide 20 mg PO DAILY #0 tab 11/22/20 ipratropium bromide 2 spray NASAL TID #0 ml 11/22/20 midodrine 10 mg PO 0600,1200,1700 30 Days #180 tab 11/22/20 spironolactone 25 mg PO DAILY #0 tab 11/22/20 Hospital Course Operations None Procedures None Summary of Care Provided Minutes Spent on Discharge: 35 Hospital Course: 85 year old male with below past medical history hospitalized for shortness of breath secondary to acute on chronic diastolic congestive heart failure, complicated by orthostatic hypotension, admitted to TCU with debility, here for rehabilitation, strengthening, prior to discharge home with . 11/21/2020 I notified resident he is dying, that he has less than 6 months to live, recommend discharge home with hospice to spend quality time with his family. Discharge home with family 11/23/2020, [facility]. Physical Exam Const alert and oriented x3 General Appearance: cooperative HEENT normocephalic Eyes PERRL and EOMs intact bilaterally Neck supple, no JVD and no carotid bruits Resp normal respiratory effort, normal air movement and clear to auscultation bilaterally Cardio regular rate and regular rhythm GI normal to inspection, nondistended, normoactive bowel sounds, non-tender and non-distended Extremity normal capillary refill General Extremity: Negative for edema Skin no rashes or lesions noted General Skin Exam: no breakdown Psych affect normal Appearance: appropriate Weight / BMI Weight Weight: 99.564 kg Body Mass Index (BMI) 31.4 ABG / Lab / Microbiology Data Result Diagrams: 11/20/20 05:15 11/21/20 05:12 Laboratory: Laboratory Results - last 24 hr 11/22/20 05:38: POC Glucose 98 D/C Instructions Discharge Diet: No restrictions Discharge Activity: Return to Normal Activity, May Shower and Use Walker Weight Bearing Status: Weight bearing as tolerated Call your doctor if you observe: Fever of 101 or Higher, Inability to urinate, Inability to have a bowel movement, Shortness of breath, Dizziness, Fainting spells, Swelling in the ankles, Chest pain and Uncontrolled pain Additional Instructions: Discharge home with family 11/23/2020, [facility]. Please Follow Up With: Lab visit When: N/A. Meaningful Use Info Meaningful Use Diagnoses (Choose all that apply): None applicable Discharge Plan Admission Admit Date/Time: 11/10/20 13:40 Primary Reason for Your Visit: Debility. Attending Provider: Agustin Rivera Chi Primary Care Provider: Prem Cardozo Consulting Providers: Melani Francois ; Juventino Prakash ; Pili Lambert ; Karis Pressley ; Esperanza Burch ; Haley Virgen COMMUNICATIONS BILLING ANALYST Instructions Additional Instructions / Restrictions: [facility] services Discharge Orders/Prescriptions Prescriptions: New acetaminophen 500 mg Tablet 1,000 mg PO Q6H PRN PRN (Reason: Pain Score 1-10) Qty: 0 RF: 0 midodrine 5 mg Tablet 10 mg PO 0600,1200,1700 30 Days Qty: 180 RF: 0 spironolactone 25 mg Tablet 25 mg PO DAILY Qty: 0 RF: 0 furosemide 20 mg Tablet 20 mg PO DAILY Qty: 0 RF: 0 ipratropium bromide 42 mcg (0.06 %) [place],Non-Aerosol 2 spray NASAL TID Qty: 0 RF: 0 Referrals / Follow Up: Prem Cardozo MD [Primary Care Provider] - Disposition Disposition (needs filled in before D/C Order can be placed): Hospice in Home
[2020-11-23 04:31] VITALS: BP 95/46; PULSE 78; RESP 18; TEMP 36.6; O2SAT 95
[2020-11-23] MEDS: Cefdinir 300 MG Capsule PO (04:39)
[2020-11-23] MEDS: Ipratropium Bromide 0.06% NASAL SPRAY 2 SPRAY NASAL (04:39)
[2020-11-23] MEDS: Senna/Docusate Sodium 1 Tablet PO (04:39)
[2020-11-23] MEDS: Midodrine HCl 5 MG Tablet 10 MG PO (04:40)
[2020-11-23] MEDS: Furosemide 20 MG Tablet PO (04:40)
[2020-11-23 06:36] LABS: Bedside Glucose 93 mg/dL (70-110)
--- NOTE | 2020-11-23 07:12 | MDS.RN ---
Information for the mds was obtained from review of the clinical record, interview of resident, staff, and direct observation of resident's care.
--- NOTE | 2020-11-23 08:38 | CASEMGMT ---
Social Work FRANCIS met with pt who confirms he will be discharging home today with family to transport at 1030. Pt aware that hospice nurse will meet him at home. FRANCIS faxed discharge summary to Hospice and updated on time of discharge. JORDI Michelle
[2020-11-23 09:01] VITALS: BP 107/55; PULSE 81; RESP 18; TEMP 37.1; O2SAT 91
[2020-11-23] MEDS: Multivitamins,Therapeutic Tablet 1 TABLET PO (09:02)
[2020-11-23] MEDS: metFORMIN HCl 500 MG Tablet PO (09:02)
[2020-11-23] MEDS: Aspirin E.C. 81 MG Tablet PO (09:03)
[2020-11-23] MEDS: Spironolactone 25 MG Tablet PO (09:06)
[2020-11-23 09:35] VITALS: PULSE 75; RESP 18; O2SAT 97
== END 2020-11-23 10:40 | disposition hospice, home (50) | DRG 293 ==
PROVIDERS: Admitting Provider Family Medicine Geriatric Medicine; PCP Internal Medicine; Visit Provider Family Medicine Geriatric Medicine
DX: I50.32 Chronic diastolic (congestive) heart failure (principal); I95.1 Orthostatic hypotension; E78.5 Hyperlipidemia, unspecified; E11.9 Type 2 diabetes mellitus without complications; K74.60 Unspecified cirrhosis of liver; N40.0 Benign prostatic hyperplasia without lower urinary tract symptoms
CPT/HCPCS: 36415; 71046; 80048; 82962; 85014; 85018; 85025; 97110; 97116; 97162; 97166; 97530; 97535; 97802

== ENCOUNTER → 2020-11-15 09:37 | Outpatient (CLI) | payer MEDICARE, SELFPAY ==
[2020-11-10 13:56] VITALS: BMI 31.4
--- NOTE | 2020-11-15 10:19 | VDUE_ITS ---
Reason For Study: swelling Left Proximal Left jugular vein is spontaneous, widely patent, phasic, with no intraluminal echogenicity noted. Left subclavian vein is spontaneous, widely patent, phasic, with no intraluminal echogenicity noted. Left Arm Left axillary vein is spontaneous, patent, phasic, competent, compressible and demonstrates augmentation. Left brachial vein is compressible. Left cephalic vein is compressible. Left basilic vein is compressible. Left Lower Arm Left radial vein is compressible. Left ulnar vein is compressible. Prelim to the pt's RN. VL/Venous Duplex US, Unilateral Interpretation Summary Deep veins of the left upper extremity are patent and compressible segmentally. There is no evidence of deep vein thrombosis. The superficial veins of the left upper extremity, the basilic and cephalic veins, are patent and compressible. There is no evidence of left upper extremit y superficial thrombophlebitis involving the veins imaged. Ordering Physician: Agustin Rivera Performed By: Rk Low RVT and Student ?
== END ==
PROVIDERS: PCP Internal Medicine; Referring Provider Family Medicine Geriatric Medicine; Visit Provider Family Medicine Geriatric Medicine
DX: M79.89 Other specified soft tissue disorders (principal)
CPT/HCPCS: 93971

== ENCOUNTER → 2021-03-14 13:19 | Outpatient (CLI) | payer SELFPAY ==
[2021-03-14 13:50] LABS: Potassium 3.8 mmol/L (3.5-5.1)
== END ==
PROVIDERS: PCP Internal Medicine; Referring Provider Family Medicine; Visit Provider Family Medicine
DX: I50.30 Unspecified diastolic (congestive) heart failure (principal)
CPT/HCPCS: 84132

== ENCOUNTER → 2021-03-20 17:24 | Outpatient (CLI) | payer MEDICARE, SELFPAY ==
[2021-03-20 18:15] LABS: Anion Gap 5 (5-15); BUN 11 mg/dL (7-18); BUN/Creat Ratio 12.9 RATIO (10-20); Chloride 96 mmol/L (98-107); Creatinine, Serum 0.85 mg/dL (0.70-1.30); EST Glomerular Filtration Rate 90 mL/min (>60); Est Glom Filt Rate - Afr Amer 109 mL/min (>60); Glucose 207 mg/dL (74-106); Potassium 4.5 mmol/L (3.5-5.1); Sodium Level 131 mmol/L (136-145)
== END ==
PROVIDERS: PCP Internal Medicine; Visit Provider Family Medicine
DX: I50.9 Heart failure, unspecified (principal)
CPT/HCPCS: 80048